=== PATIENT | male | born 1940 ===

== ENCOUNTER 2023-10-15 11:28 | Observation (INO) ==
[~2023-10-15 11:28] MED LIST: Dexamethasone IV 4 MG/ML VIAL 1 ml VIAL ONE; Lidocaine 2% PF 5 ML VIAL ONE; Naloxone 0.4 mg VIAL 0.4 mg/ml 1 ml VIAL IV PRN; Ondansetron 4 mg VIAL 2 MG/ML 2 ml VIAL ONE; Propofol 10 MG/ML 20 ML BTL ONE; Rocuronium 50 mg VIAL 10 mg/ml 5 ml VIAL (50 mg) ONE; fentaNYL 100 mcg/2 ml 50 MCG/ML VIAL IV PRN; fentaNYL 100 mcg/2 ml 50 MCG/ML VIAL ONE
[2023-10-15] MEDS ORDERED: Chlorhexidine MOUTHWASH 0.12% 15 ML UDC ONE (11:50)
[2023-10-15] MEDS ORDERED: ceFAZolin 2 GM in NS PREMIX 2 GM/100 ML BAG IVPB ONE (11:50)
[2023-10-15 13:09] LABS: Rapid COVID-19 Molecular Undetected (Undetected)
[2023-10-15] MEDS ORDERED: ceFAZolin VIAL VIAL ONE (14:04)
[2023-10-15] MEDS ORDERED: Thrombin 5,000 UNITS 1 APPLIC KIT - topical use - TOPICAL ONE (14:04)
[2023-10-15] MEDS ORDERED: Lidocaine 1% w EPI 1:100,000 MDV 20 ML VIAL ONE (14:04)
[2023-10-15] MEDS ORDERED: Gelfoam Sponge SIZE 100 SPONGE ONE (14:04)
[2023-10-15] MEDS ORDERED: Acetaminophen IV 1 GM/100ML 1,000 MG/100 ML BAG IV ONE (14:51)
[2023-10-15] MEDS ORDERED: Phenol 1.4% Throat Spray BTL MT PRN (15:47)
[2023-10-15] MEDS ORDERED: Ondansetron 4 mg VIAL 2 MG/ML 2 ml VIAL IV PRN (15:47)
[2023-10-15] MEDS ORDERED: Senna TAB 8.6 mg TAB PO PRN (15:47)
[2023-10-15] MEDS ORDERED: Dextran 70/Hypromellose Tears Eye Drops 15 ml BTL (for Artificials Tears) BOTH EYES PRN (15:47)
[2023-10-15] MEDS ORDERED: Calcium Carb (TUMS) 500 mg CHEW TAB PO PRN (15:47)
[2023-10-15] MEDS ORDERED: HYDROcodone/ACETAMIN 5/325 mg TAB PO PRN ×2 (15:47)
[2023-10-15] MEDS ORDERED: Morphine 2 MG/ML SYRINGE IV PRN (15:47)
[2023-10-15] MEDS ORDERED: Benzocaine/Menthol LOZ MT PRN (15:47)
[2023-10-15] MEDS: Buffered Lidocaine 1% SYRIN 1 ml INTRADERM ONE (17:54)
[2023-10-15] MEDS: Lactated Ringers 1000 ml BAG 1,000 ML IV SCH ×2 (17:54→18:23)
[2023-10-16 05:42] VITALS: BP 129/78
== END 2023-10-16 11:05 | disposition home or self-care (01) ==
LOC: SSU 11:28 → OR 11:28
PROVIDERS: ADMIT Physician Assistant; ATTEND Neurological Surgery